=== PATIENT | male | born 1940 | race Caucasian/White ===

== ENCOUNTER 2018-08-25 06:02 | Inpatient (IN) | payer MEDICARE, OTHER ==
[2018-08-14 08:56] LABS: ABSOLUTE EOSINOPHILS 0.2 thou/uL (0.0-0.7); ABSOLUTE MONOCYTES 0.3 thou/uL (0.0-1.2); ABSOLUTE NEUTROPHILS 3.3 thou/uL (1.6-8.1); EOSINOPHILS 3.3 %; HEMATOCRIT 42.4 % (42.0-52.0); HEMOGLOBIN 14.3 gm/dL (14.0-18.0); LYMPHOCYTES 20.6 %; MCH 28.4 pg (26.0-34.0); MCHC 33.8 g/dL (28.0-37.0); MONOCYTES 6.3 %; MPV 6.9 fl. (7.2-11.1); NUCLEATED RBCS 0 /100WBC; PLATELET COUNT* 282 thou/uL (150-400); POLYS 68.8 %; RBC 5.05 mil/uL (4.50-6.00); RDW-CV 13.7 % (10.5-14.5); WBC 4.8 thou/uL (4.0-11.0)
[2018-08-14 09:05] LABS: APTT 26.8 Seconds (25.0-31.3); PROTIME 10.7 Seconds (9.20-11.50)
[2018-08-14 09:08] LABS: ALBUMIN 3.9 g/dL (3.4-5.0); CALCIUM 9.1 mg/dL (8.5-10.1); POTASSIUM 4.4 mmol/L (3.5-5.1); TOTAL BILIRUBIN 1.3 mg/dL (<0.1-1.0); TOTAL PROTEIN 7.3 g/dL (6.4-8.2)
[2018-08-14 10:20] LABS: ESR (SEDRATE) 5 mm/hr (0-20)
--- NOTE | 2018-08-15 10:19 | EKG ---
[place] [address] ELECTROCARDIOGRAM REPORT Name: TATY ADHIKARI Room: PRE IN [facility].#: [id number] Admission: Attend Phys: Elisa Cooney Discharge: Date of : 40 Report #: [id number] THIS REPORT FOR: //name// [facility] Test Date: 2018-08-14 Test Time: 09:06:06 Pat Name: TATY ADHIKARI Department: Room: Gender: M Instant Print Operator: : 1940 Requested By: Brad Persaud Order Number: [id number] Reading MD: Jerome Webster Measurements Intervals Egan Rate: 59 P: 0 W[place]: 203 QRS: 57 QRSD: 110 T: 40 QT: 431 QTc: 427 Interpretive Statements Sinus rhythm Borderline low voltage, extremity leads RSR' in V1 or V2, right VCD Compared to ECG 12/31/2013 14:06:44 RSR' in V1 or V2 now present Sinus bradycardia no longer present Electronically Signed On 08-15-2018 10:19:01 PIANO INSTRUCTOR by Jerome Webster [email or web address] <ELECTRONICALLY SIGNED> By: Jerome Webster MD, [facility] 08/15/18 1019 09 09 Jerome Webster MD, FAC /EPI
[~2018-08-25] VITALS: Ht 177.8 cm; Wt 81.6 kg
[~2018-08-25 06:02] MED LIST: ATENOLOL-CHLOR1 EACH PO; CVS LUTEIN 401 EACH PO; HYDROCODON-ACE1 EAC8 PO; ICAPS TABLET1 EACH PO; KLOR-CON 1010 MEQ PO; LISINOPRIL10 MG PO; NEXIUM 40 MG CA40 M1 PO; NORVASC5 MG PO; TENORMIN50 MG PO; VITAMIN D-32000 UNIT PO; VITAMIN D1000 UNI1 PO; ZYRTEC10 M5 PO
[2018-08-25 07:15] VITALS: BP 111/64
[2018-08-25] MEDS ORDERED: PROTONIX40 M1 PO ×2 (07:22→07:23)
[2018-08-25] MEDS ORDERED: ASPIRIN325 PO (07:24)
[2018-08-25 08:00] VITALS: BP 111/64
[2018-08-25 12:18] VITALS: BP 146/65
[2018-08-25 15:56] VITALS: BP 138/75
[2018-08-25 19:13] VITALS: BP 147/87
[2018-08-26] VITALS: BP 127/64
[2018-08-26 04:00] VITALS: BP 132/69
[2018-08-26 04:47] LABS: HEMATOCRIT 33.3 % (42.0-52.0); HEMOGLOBIN 11.9 gm/dL (14.0-18.0)
--- NOTE | 2018-08-26 07:03 | OP ---
[facility] [address] [place] [address] OPERATIVE REPORT Name: ZEYNEPTATYMAURILIO BALTAZAR Room: [address] M.R.#: [id number] Admission: 08/25/18 Attend Phys: Elisa Cooney Discharge: Date of : 40 Report #: [id number] THIS REPORT FOR: //name// CC: Brad Dela Cruz DICTATED BY: Thad Moore DO DATE OF SERVICE: 08/25/2018 PREOPERATIVE DIAGNOSES: 1. Right hip advanced degenerative joint disease. 2. Previous back surgery with instrumentation. POSTOPERATIVE DIAGNOSES: 1. Right hip advanced degenerative joint disease. 2. Previous back surgery with instrumentation. PROCEDURE: Right total hip arthroplasty utilizing a dual mobility implant. SURGEON: Brad Persaud DO WASTEWATER PLANT OPERATOR: Thad Moore DO SECOND SAWDUST MACHINE OPERATOR: Frederick Bae DO ANESTHESIA: General with a capsular block. ESTIMATED BLOOD LOSS: 350 mL. None was returned via Cell Saver. SPECIMENS REMOVED: None. COMPLICATIONS: None. CONDITION: Stable. DISPOSITION: To PACU, to be admitted to orthopedic floor. ORTHOPEDIC IMPLANTS: The Biomet total hip arthroplasty system with the following components: 1. A size 15 high offset Microplasty femoral stem. 2. A 62 mm G7 acetabular shell. 3. Dual mobility bearing with a 28 mm ceramic head. 4. A standard neck taper adapter. 5. Two bone screws. [address] [place] [address] OPERATIVE REPORT Name: TATY ADHIKARI Room: [address] [facility].#: [id number] Admission: 08/25/18 Attend Phys: Elisa Cooney Discharge: Date of : 40 Report #: [id number] INDICATIONS: The patient is a pleasant 78-year-old male who has been followed in the outpatient Orthopedic Clinic regarding longstanding right hip pain. He has a known degenerative joint disease of the right hip. He has failed conservative care consisting of NSAID, analgesia, activity modifications, attempted weight loss. He has continued to be symptomatic despite conservative measures. We discussed risks, benefits, complications, and alternatives to total hip arthroplasty with the patient in detail. Risks include but are not limited to blood loss, DVT, PE, damage to neurovascular structures, leg length inequality, dislocation, periprosthetic fracture, failure of orthopedic implant, need for repeat surgery, and complications of anesthesia. The patient expressed understanding and wished to proceed. The patient has had previous back surgery with instrumentation and fusion. This put him at increased risk for postoperative dislocation and instability. For this reason, we discussed with the patient the likelihood of utilizing a dual mobility system for added stability. DESCRIPTION OF PROCEDURE: The patient was transferred to the Operating Room and placed on the [place] table in supine position. He was given the benefit of general anesthesia. The bilateral feet were placed in traction boots on the traction table. The right hip area was then prepped and draped in the usual sterile fashion. A timeout was then taken to confirm the appropriate patient identification, operative site and procedure to be performed. All in the room were in agreement with the timeout. A skin incision was performed approximately 2 fingerbreadths distal and 2 fingerbreadths lateral to the ASIS. Dissection was carried down sharply through the skin and subcutaneous tissue to the level of the iliotibial band. A new scalpel blade was then used to incise the iliotibial band. The vessels were then encountered and cauterized using Aquamantys. Dissection was then carried down with a Bovie to the level of the joint capsule. Appropriate retractors were placed. The capsule was then treated using the Aquamantys cautery. The Bovie was then used to perform our capsulotomy. A saw blade was then used to perform our neck cut. Retractors were in place to protect the surrounding structures. The neck cut was performed in a napkin ring fashion. Bone tenaculums were then used to remove the neck and head. We then began preparation of her acetabular shell. Remaining soft tissue interposed into the acetabulum was removed. We then reamed the acetabulum sequentially up to a size 61 reamer. The final 62 mm acetabular shell was then implanted into place using the alignment guide to determine our appropriate positioning. Two bone screws were then placed followed by the dual mobility liner. Attention was then addressed to the femur. The right lower extremity was placed in hip extension and abduction and adduction. Soft tissue structures were released off the proximal femur to allow [place] [address] OPERATIVE REPORT Name: TATY ADHIKARI Room: [address] M.R.#: [id number] Admission: 08/25/18 Attend Phys: Elisa Cooney Discharge: Date of : 40 Report #: [id number] placed our retractors appropriately. The box osteotome was used to gain initial access to the proximal femur followed by the rattail rasp as a canal finder. The femur was then broached sequentially to a size 15 mm stem. Once the size 15 mm stem was in place, a trial head was placed and the hip was reduced. C-arm images were obtained with the trial components in place, which confirmed appropriate length and positioning of her femoral stem. At that point, the boot was taken out of the traction table and taken through a full range of motion and confirmed appropriate stability without any evidence of subluxation or dislocation. The trial components were then removed. The hip was thoroughly irrigated. The hip was sprinkled with vancomycin powder. The final stem and femoral head were implanted. Another set of x-rays were obtained and again confirmed appropriate positioning of all implants including the femur and the acetabular shell. The hip was again taken through range of motion and verified continued stability with the final implants. The hip was once again irrigated. IT band was then closed using 3-0 Stratafix suture. At this point, through the IT band topical TXA was applied. Skin was closed using 2-0 Monocryl in inverted fashion. 3-0 Stratafix and skin glue were used to close the skin layer. Sterile Mepilex dressing was applied. The patient was transferred to PACU in stable condition. Needle and sponge counts were correct at the end of procedure x 2. <ELECTRONICALLY SIGNED> By: Hill Yost DO 08/26/18 0703 1012 [id number] Persaud DO /bridgette
[2018-08-26 08:30] VITALS: BP 140/80
[2018-08-26 11:12] VITALS: BP 140/80
[2018-08-26 11:56] VITALS: BP 140/80
[2018-08-26] MEDS ORDERED: ELIQUIS2.5 MG PO (12:03)
[2018-08-26] MEDS ORDERED: OXYCODONE HCL 55 MG PO (12:10)
[2018-08-26 12:19] VITALS: BP 140/80
== END 2018-08-26 12:21 | disposition home or self-care (01) | DRG 470 ==
LOC: M.TBA 06:02 → M.SUR 07:07 → EDSTATUS 07:50 → M.PRE 07:58 → M.ORTHSURG 12:00 → M.PRE 12:21 → M.ORTHSURG 08-26 12:21
PROVIDERS: Orthopaedic Surgery; ADMIT Internal Medicine
PROC: 0SR903Z Replacement of Right Hip Joint with Ceramic Synthetic Substitute, Open Approach (ICD-10-PCS; principal; 2018-08-25)
DX: M16.11 Unilateral primary osteoarthritis, right hip (principal); J98.11 Atelectasis; D62 Acute posthemorrhagic anemia; H91.90 Unspecified hearing loss, unspecified ear; I10 Essential (primary) hypertension; K44.9 Diaphragmatic hernia without obstruction or gangrene; F17.210 Nicotine dependence, cigarettes, uncomplicated; Z96.1 Presence of intraocular lens; K21.9 Gastro-esophageal reflux disease without esophagitis; Z98.41 Cataract extraction status, right eye; Z98.42 Cataract extraction status, left eye; Z86.73 Personal history of transient ischemic attack (TIA), and cerebral infarction without residual deficits

== ENCOUNTER 2019-01-22 15:42 | Emergency (ER) | payer MEDICARE, OTHER ==
[~2019-01-22] VITALS: Ht 177.8 cm; Wt 79.4 kg
[~2019-01-22 15:42] MED LIST changes: +ASPIRIN325 PO; +ELIQUIS2.5 MG PO; +OXYCODONE HCL 55 MG PO; +PROTONIX40 M1 PO
[2019-01-22] MEDS ORDERED: ASPIR 8181 MG PO (15:53)
[2019-01-22] MEDS ORDERED: KEFLEX500 M1 PO (17:00)
[2019-01-22] MEDS ORDERED: BACTRIM DS TAB1 EAC1 PO (17:00)
[2019-01-22 17:34] VITALS: BP 156/77
== END 2019-01-22 17:35 | disposition home or self-care (01) ==
LOC: M.ERS 15:42
DX: S50.862A Insect bite (nonvenomous) of left forearm, initial encounter (principal); L08.9 Local infection of the skin and subcutaneous tissue, unspecified; L03.114 Cellulitis of left upper limb; I10 Essential (primary) hypertension; K21.9 Gastro-esophageal reflux disease without esophagitis; Z96.643 Presence of artificial hip joint, bilateral; Z86.73 Personal history of transient ischemic attack (TIA), and cerebral infarction without residual deficits; W57.XXXA Bitten or stung by nonvenomous insect and other nonvenomous arthropods, initial encounter; Y93.89 Activity, other specified; Y92.89 Other specified places as the place of occurrence of the external cause; Y99.8 Other external cause status